=== PATIENT | male | born 1980 | race Hispanic/Latino ===

== ENCOUNTER 2020-08-31 11:07 | Emergency (ER) | payer SELFPAY ==
[2020-08-31 11:37] VITALS: BP 145/86
[2020-08-31] MEDS ORDERED: MORPHINE 2 MG/1 ML INJ IV ONE (11:59)
[2020-08-31] MEDS ORDERED: ONDANSETRON 4 MG/2 ML INJ IV ONE (11:59)
[2020-08-31] MEDS ORDERED: BUPIVACAINE/PF (0.5%) 5 MG/1 ML 10 ML VIAL INFILTRATI ONE (12:06)
[2020-08-31] MEDS ORDERED: LIDOCAINE (1%) 10 MG/1 ML VIAL 20 ML MDV INFILTRATI ONE (12:06)
[2020-08-31] MEDS ORDERED: MORPHINE 2 MG/1 ML INJ ONE (12:21)
--- NOTE | 2020-08-31 12:23 | XRay Report ---
XR hand 2V LT INDICATION / CLINICAL INFORMATION: trauma. COMPARISON: None available. 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 No additional fracture. No discrete radiopaque foreign b noah detected. Signer Name: Reed Ramesh MD Signed: 08/31/2020 12:18 PM Workstation Name: [id number]
[2020-08-31] MEDS ORDERED: LORazepam 2 MG/ML VIAL IV ONE (12:46)
[2020-08-31] MEDS ORDERED: MORPHINE 4 MG/1 ML INJ IV ONE (12:46)
[2020-08-31 13:00] LABS: Basophils # (Auto) 0.1 K/mm3 (0.0-0.1); Basophils % (Auto) 0.7 % (0.0-1.8); Eosinophils # (Auto) 0.4 K/mm3 (0.0-0.4); Eosinophils % (Auto) 5.1 % (0.0-4.3); Hematocrit 40.7 % (35.5-45.6); Hemoglobin 14.2 gm/dl (11.8-15.2); Lymphocytes # (Auto) 1.1 K/mm3 (1.2-5.4); Lymphocytes % (Auto) 13.4 % (13.4-35.0); Mean Corpuscular HGB Conc 35 % (32-34); Mean Corpuscular Volume 84 fl (84-94); Monocytes # (Auto) 0.8 K/mm3 (0.0-0.8); Monocytes % (Auto) 9.7 % (0.0-7.3); Platelet Count 235 K/mm3 (140-440); Red Blood Count 4.82 M/mm3 (3.65-5.03); Red Cell Distribution Width 13.6 % (13.2-15.2)
[2020-08-31 13:15] LABS: BUN/Creatinine Ratio 18; Blood Urea Nitrogen 24 mg/dL (9-20); Calcium 9.2 mg/dL (8.4-10.2); Hemolysis Index 9
[2020-08-31 13:20] LABS: INR 0.93 (0.87-1.13)
[2020-08-31] MEDS ORDERED: SODIUM CHLORIDE 0.9% 1000 ML 1,000 ML ONE (13:35)
--- NOTE | 2020-08-31 14:10 | Emergency Department Report ---
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 This occurred approximately 20 minutes prior to arrival. He denies any other injury. He has a history of hypertension but not diabetes. He does not smoke. -: Sudden Location: left, upper extremity Severity scale (0 -10): 10 Quality: aching Consistency: constant Improves with: none Worsens with: none Associated Symptoms: denies other symptoms Treatments Prior to Arrival: other (Patient left his glove on at the scene and use some red duct tape for hemostasis) - Related Data Previous Rx's Medication Instructions Recorded Last Taken Type HYDROcodone/APAP 5-325 [[place] 1 each PO Q6HR PRN #14 tablet 08/31/20 Unknown Rx 5/325] Sulfamethoxazole/Trimethoprim 1 each PO BID #14 tablet 08/31/20 Unknown Rx [Bactrim DS TAB] Allergies Allergy/AdvReac Type Severity Reaction Status Date / Time No Known Allergies Allergy Unverified 08/31/20 12:17 ED Review of Systems ROS: Stated complaint: FINGER INJURY Other details as noted in HPI Comment: All other systems reviewed and negative ED Past Medical Hx - Past Medical History Hx Hypertension: Yes Additional medical history: States history of staph skin infection. - Social History Smoking Status: Never Smoker - Medications Home Medications: Home Medications Medication Instructions Recorded Confirmed Last Taken Type HYDROcodone/APAP 5-325 [[place] 1 each PO Q6HR PRN #14 tablet 08/31/20 Unknown Rx 5/325] Sulfamethoxazole/Trimethoprim 1 each PO BID #14 tablet 08/31/20 Unknown Rx [Bactrim DS TAB] ED Physical Exam - General Limitations: No Limitations General appearance: obese - Head Head exam: Present: atraumatic - Eye Eye exam: Present: normal appearance - ENT ENT exam: Present: mucous membranes moist - Neck Neck exam: Present: normal inspection - Respiratory Respiratory exam: Present: normal lung sounds bilaterally - Cardiovascular Cardiovascular Exam: Present: regular rate, normal rhythm. Absent: systolic murmur, diastolic murmur, rubs, gallop - GI/Abdominal GI/Abdominal exam: Present: soft. Absent: distended, tenderness - Extremities Exam Extremities exam: Present: normal inspection (Tuft fracture/open index and middle/partial amputation), other (There is a approximate 75% distal amputation of the middle finger involving the nail bed. There is sufficient blood flow to attempt reimplantation. There is exposed bone in a deep laceration affecting the tuft. There is an 25% partial amputation deep of the left index finger through the nail bed) - Back Exam Back exam: Present: normal inspection - Neurological Exam Neurological exam: Present: other (Limited ability to examine, patient very anxious) - Psychiatric Psychiatric exam: Present: agitated, anxious - Skin Skin exam: Present: other (Partial amputations as above) ED Course Vital Signs 08/31/20 11:33 Pulse Rate 64 Respiratory 15 Rate Blood Pressure 145/86 [Left] O2 Sat by Pulse 98 Oximetry - Reevaluation(s) Reevaluation #1: Patient was given morphine and later Ativan and additional morphine. A digital nerve block of the index and middle finger was performed using bupivacaine and 1% lidocaine 10 cc. Patient was monitored. He maintained his blood pressure and pulse oximetry. He was given some IV fluid along the way as well as some Ancef IV piggyback. Procedure was well-tolerated. 08/31/20 14:12 - Laceration /Wound Repair Left Finger Wound Location: lower extremity Wound Length (cm): 6 Wound's Depth, Shape: irregular (And deep through bone) Wound Explored: no foreign body removed Irrigated w/ Saline (ccs): 100 (Profusely irrigated with at least 100 cc of saline both fingers) Betadine Prep?: Yes Anesthesia: 1% Lidocaine, 0.5% Sensorcaine Wound Debrided: extensive (Devitalized fat and skin debrided) Suture Size/Type: 4:0 Number of Sutures: 10 (Approximately) ED Medical Decision Making - Lab Data Result diagrams: 08/31/20 12:28 08/31/20 12:28 Critical care attestation.: If time is entered above; I have spent that time in minutes in the direct care of this critically ill patient, excluding procedure time. 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 Qualifiers: Encounter type: initial encounter Qualified Code(s): S68.621A - Partial traumatic transphalangeal amputation of left index finger, initial encounter Partial traumatic amputation of left middle finger through phalanx Qualifiers: Encounter type: initial encounter Qualified Code(s): S68.623A - Partial trauma tic transphalangeal amputation of left middle finger, initial encounter Disposition: TO HOME OR SELFCARE Is pt being admited?: No Does the pt Need Aspirin: No Condition: Stable Instructions: Laceration Care, Adult, Sutures, [place], or Adhesive Wound Closure Additional Instructions: See Dr. Tyler tomorrow for follow-up care. Dressing changes per Dr. Tyler. Rx antibiotic and pain medication. Elevate hand. Remain in splint. Do not w ork until cleared by Dr. Tyler. Prescriptions: Sulfamethoxazole/Trimethoprim [Bactrim DS TAB] 1 each PO BID #14 tablet HYDROcodone/APAP 5-325 [[place] 5/325] 1 each PO Q6HR PRN #14 tablet PRN Reason: Pain Referrals: PRIMARY CAREMD [Primary Care Provider] - 3-5 Days CHADWICK TYLER MD [Staff Physician] - 24 Hours Time of Disposition: 14:19
== END 2020-08-31 16:10 | disposition home or self-care (01) ==
LOC: ED 11:07
DX: S68.121A Partial traumatic metacarpophalangeal amputation of left index finger, initial encounter (principal); S68.123A Partial traumatic metacarpophalangeal amputation of left middle finger, initial encounter; I10 Essential (primary) hypertension; Z79.899 Other long term (current) drug therapy; X58.XXXA Exposure to other specified factors, initial encounter; Y93.89 Activity, other specified; Y92.89 Other specified places as the place of occurrence of the external cause; Y99.8 Other external cause status
CPT/HCPCS: 12042; 29130; 36415; 73120; 80048; 85025; 85610; 96365; 96375; 99284; J0690; J2060; J2270; J2405; J7030